=== PATIENT | male | born 1970 | race Caucasian/White ===

== ENCOUNTER 2019-12-27 12:10 | Inpatient (IN) | payer SELFPAY ==
[2019-12-27] VITALS (28 sets, daily range): BP systolic 143–210; BP diastolic 87–130; PULSE 73–122; RESP 14–24; TEMP 36.9; O2SAT 93–100; BMI 26.9
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
--- NOTE | 2019-12-27 12:16 | CT_ITS ---
WS: [id number] CT HEAD TECHNIQUE: Noncontrast CT of the head obtained from the skullbase to the vertex. CLINICAL INFORMATION: ARERAGA/AMS COMPARISON: None. DLP: 903.[address] scans at [facility] use at least one of these dose optimization techniques: automat ed exposure control; mA and/or kV adjustment per patient size (includes targeted exams where dose is matched to clinical indication); or iterative reconstruction. FINDINGS: No evidence of intracranial hemorrhage or mass effect. Ventricular system and basal cisterns are gifford nt. No extra-axial fluid collections. No evidence of mass or mass effect. Normal faust-white different iation. Paranasal sinuses and mastoid air cells are well aerated. .Normal visualized soft tissues. Notified Marina Brian at 12/27/2019 1:[address]/CT head wo con* [id number] IMPRESSION: 1. No evidence of intracranial hemorrhage or mass effect. 2. No acute intracranial findings.
--- NOTE | 2019-12-27 12:23 | ED_ITS ---
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 fatty infiltration the liver. 2. No obstructing renal or ureteral calculi. Normal renal parenchymal enhancement. No hydronephrosis. 3. Slightly heterogeneous and enlarged prostate for patient's age with mild bladder wall thickening. Prostate measures 5.1 x 2.8 CM. Recommend correlation with symptoms of prostatitis. Recommend PSA. 4. Mild bladder wall thickening can be seen with cystitis or bladder outlet obstruction. Dictated By:Jac Velasco MD Signed By:Jac Velasco MDSigned Date/Time:12/27/19 Discharge Plan Discharge Patient Disposition: Admitted As Inpatient Admit Provider: Gagan Davis Clinical Impression: Alcohol withdrawal seizure Condition: Stable Interventions: ED Discharge Assessment Last Done: 12/27/19 19:49 Discharge Date/Time: 12/27/19 19:50 Coding Level of Care Code ED Ocean Lifeguard for Chg Fwd Exam Comprehensive The documentation recorded by the Dyan chavez Valerie R, accurately reflects the service I personally performed and the decisions made by Snehal booker Eli N Dec 27, 2019 12:10
[2019-12-27 12:37] LABS: Basophils # 0.1 10^3/uL (0.0-0.1); Basophils % 0.5 %; Eosinophils % 0.3 %; Hematocrit 50.3 % (42.0-52.0); Hemoglobin 17.1 g/dL (11.7-16.6); Lymphocytes # 1.6 10^3/uL (0.8-4.8); Mean Corpuscular Hemoglobin 33.7 pg (28.0-34.0); Mean Platelet Volume 11.3 fL (7.4-10.4); Monocytes # 0.9 10^3/uL (0.2-0.9); Monocytes % 8.3 %; Neutrophils # 8.1 10^3/uL (1.8-7.7); Neutrophils % 75.4 %; Nucleated Red Blood Cells % 0 %; Platelet Count 146 10^3/cmm (130-400); Red Blood Count 5.08 10^6/uL (4.1-5.3); Red Cell Distribution Width 12.2 % (12.1-15.1); White Blood Count 10.7 10^3/uL (4.0-10.0)
--- NOTE | 2019-12-27 12:39 | PC.NURSE ---
seizure precaution pads placed on pt's bed
[2019-12-27 13:06] LABS: Alanine Aminotransferase 498 U/L (0-41); Albumin Level 4.8 g/dL (3.5-5.2); Alkaline Phosphatase 136 IU/L (40-130); Anion Gap 34.3 (5-19); Blood Urea Nitrogen 9 mg/dL (6-20); Calcium 10.2 mg/dL (8.5-10.5); Carbon Dioxide 14 mmol/L (22-29); Chloride 87 mmol/L (98-107); Globulin 3.8 g/dL (1.3-4.6); Glomerular Filtration Rate 58.7 mL/min (90-130); Glucose 173 mg/dL (65-115); Osmolality Calculated 274 mOsm/kg (285-295); Potassium 3.3 mmol/L (3.5-5.1); Sodium 132 mmol/L (136-145); Total Protein 8.6 g/dL (6.6-8.7)
[2019-12-27 13:07] LABS: Lactic Sepsis W/Reflex 3.4 mmol/L (0.5-2.2)
[2019-12-27 13:10] LABS: Creatine Phosphokinase 330 U/L (39-308)
--- NOTE | 2019-12-27 13:10 | US_ITS ---
WS: [id number] Abdomen ultrasound, 12/27/2019 Clinical Data: Abdominal Pain Comparison: None. Findings: The pancreas shows no cyst, pseudocyst or evidence of pancreatitis. The liver shows no cysts, masses or dilated intrahepatic ducts. Fatty infiltration and enlargement is seen, and the liver measures 22.03 cm The gallbladder has no stones or sludge. The wall measures 0.2 cm with no pericholecystic fluid. The common bile duct is 0.5 cm and no intraductal abnormalities are noted. The right kidney is 5.61 x 6.01 x 10.7 cm. No cysts, masses or hydronephrosis is seen. The left kidney is 6.74 x 6.90 x 11.3 cm. No cysts, masses or hydronephrosis is seen. The abdominal aorta is not dilated and the inferior vena cava has normal flow. No vascular abnormalit ies are seen. The spleen measures 5.02 x 4.47 x 12.0 cm and there are no intrasplenic masses or capsular abnormali ties. US/US abdomen complete* [id number] Impression: Large dense liver
[2019-12-27 13:15] LABS: Aspartate Amino Transferase 827 U/L (0-40)
--- NOTE | 2019-12-27 13:29 | CT_ITS ---
WS: [id number] CT ABDOMEN PELVIS TECHNIQUE: Noncontrast CT of the abdomen and contrast-enhanced CT of the abdomen and pelvis with tomy nal and sagittal reformatted images. CLINICAL INFORMATION: PAIN/BLODDY URINE COMPARISON: None. DLP: 2105.[address] scans at [facility] use at least one of these dose optimization techniques: automat ed exposure control; mA and/or kV adjustment per patient size (includes targeted exams where dose is matched to clinical indication); or iterative reconstruction. FINDINGS: Hepatomegaly with diffuse fatty infiltration of the liver. Normal portal vein and splenic vein. Nighat l gallbladder. Normal spleen. Small splenules. Adrenal glands are normal. Normal renal parenchymal en hancement. No hydronephrosis. No obstructing renal or ureteral calculi. Mild bladder wall thickening can be seen with cystitis or bladder outlet obstruction. Slightly hetero geneous and enlarged prostate for patient's age measuring 5.1 x 2.8 cm. Recommend correlation with pr ostatitis and recommend PSA. Normal pancreas. Normal caliber abdominal aorta. Sigmoid diverticulosis. No evidence of acute diverticulitis. Fat-containing umbilical hernia. No free fluid in the abdomen or pelvis. No periaortic or inguinal lymphadenopathy. Notified Marina Brian at 12/27/2019 3:[address]/CT abdomen pelvis wo/w [id number] IMPRESSION: 1. Thyromegaly diffuse fatty infiltration the liver. 2. No obstructing renal or ureteral calculi. Normal renal parenchymal enhancem ent. No hydronephrosis. 3. Slightly heterogeneous and enlarged prostate for patient's age with mild bl adder wall thickening. Prostate measures 5.1 x 2.8 CM. Recommend correlation wi th symptoms of prostatitis. Recommend PSA. 4. Mild bladder wall thickening can be seen with cystitis or bladder outlet ob struction.
[2019-12-27 13:42] LABS: Hepatitis A Antibody IgM. Non-Reactive (Nonreactive); Hepatitis B Core IgM Non-Reactive (Nonreactive); Hepatitis B Surface Antigen. Non-Reactive (Nonreactive); Hepatitis C Virus Antibody Non-Reactive (Nonreactive)
[2019-12-27] MEDS: sodium chloride 0.9% 2,857.62 ML 2857.6 ML IV (13:42)
--- NOTE | 2019-12-27 13:47 | PC.NURSE ---
portable ultrasound at bedside
[2019-12-27 13:51] LABS: Glucose Urine UA Norm (Normal); Protein Urine 3+ (Negative); Urine Appearance Turbid (CLEAR); Urine Color Red (Yellow); pH Urine 6.5 (5-7)
[2019-12-27 13:52] LABS: Bilirubin Urine 1+ (NEGATIVE); Blood Urine 3+ (Negative); Ketones Urine 1+ (Negative); Leukocyte Esterase Urine Trace (Negative); Nitrate Urine Positive (Negative); RBC Urine >100 /hpf (0-2); Urobilinogen Urine 8 mg/dL (Negative); WBC Urine 25-40 /hpf (0-5)
[2019-12-27 13:53] LABS: Add Urine Culture? Yes; Bacteria Urine 2+; Squamous Epithelial Cell Urine 0-4 (0-5)
[2019-12-27 14:13] LABS: Amphetamines Screen Urine Negative (Negative); Barbiturates Screen Urine Negative (Negative); Benzodiazepines Screen Urine Negative (Negative); Cocaine Screen Urine Negative (Negative); Opiate Screen Urine Negative (Negative); PCP Screen Urine Negative (Negative); THC Screen Urine Positive (Negative)
--- NOTE | 2019-12-27 14:31 | PC.NURSE ---
pt transported to CT by stretcher with tech
[2019-12-27] MEDS: iohexol 300 mg/mL 100 mL Btl IV (14:36)
[2019-12-27 14:37] LABS: Reflex Lactate Order REFLEX LACTIC ORDERD
[2019-12-27 15:02] LABS: Alcohol Level < 10 mg/dL (0-10)
[2019-12-27] MEDS: cefTRIAXone 2,000 MG in sodium chloride 0.9% (plus) 50 ML 100 MG IV (15:07)
[2019-12-27 15:20] LABS: Lactic Acid level (Lactate) 1.4 mmol/L (0.5-2.2)
[2019-12-27] MEDS: LORazepam 2 mg/mL INJ 1 mL 1 MG IVP ×2 (15:57→19:01)
[2019-12-27 16:26] LABS: Ammonia 46 umol/L (16-60)
[2019-12-27 16:27] LABS: Phenytoin Dilantin 0.8 ug/mL (10-20); Valproic Acid Level 2.8 mcg/mL (50-100)
[2019-12-27 16:28] LABS: Lithium 0.1 mmol/L (0.6-1.2)
[2019-12-27 16:29] LABS: Acetaminophen < 5.0 ug/mL (10-30); Salicylate < 0.3 mg/dL (3-10)
[2019-12-27 16:44] LABS: INR 1.21 (0.8-1.2); Partial Thromboplastin Time 20.9 SECONDS (23.9-36.7)
[2019-12-27 17:30] LABS: Lipase 25 U/L (13-60)
[2019-12-27] MEDS: folic acid 1 MG, multivitamin inj 10 ML, thiamine 100 MG in sodium chloride 0.9% 1,000 ML 252.8 MG IV (17:42)
--- NOTE | 2019-12-27 17:44 | PM.HP ---
Providers/Chief Complaint Chief Complaint: NEW ONSET SEIZURES, TEMP History of Present Illness Anam Lozano is a 49 year old male who presents to the hospital with history of generalized shaking, seizure at work associated with loss of consciousness, and slow recovery. Patient reports he does not remember the event. He reports he was feeling normal this morning. He denies any previous history of seizures. He states that he recently stopped drinking and he is an alcoholic. He believes his last alcoholic drink was 2 to 3 days ago. He reports he has had withdrawal in the past. Recently he has been having some health problems with blood in his urine. He denies any dysuria. He has had no fever. He was recently given penicillin for a cut that he obtained on his skin, for UTI. He reports he went to an outside ER and reports they told him penicillin was responsible for his hematuria. He reports no prior history of significant liver failure. He does report he had a little bit of vomiting of blood after a nosebleed on Thursday but has not had any since. He reports 1 blackish stool. This is not continued and he has not had diarrhea. He denies any history of esophageal varices. Review of Systems General: Reports: 10 or more systems reviewed and unremarkable except in HPI and below Const: Reports: fatigue; Denies: fever Eyes: Denies: blurry vision ENMT: Denies: throat pain Card: Denies: chest pain Resp: Denies: shortness of breath GI: Denies: abdominal pain : Reports: other (Blood in urine) Musc: Denies: back pain Skin/Breast: Denies: rash Neuro: Denies: headache Psych: Reports: depression Endo: Denies: excessive urination Usman/Lymph: Denies: easy bruising All/Imm: Denies: hives Medications/Allergies Home Medications Medication Instructions Recorded Confirmed Last Taken Type aspirin 81 mg PO DAILY 12/27/19 12/27/19 Unknown History Allergies Allergy/AdvReac Type Severity Reaction Status Date / Time Penicillins Allergy ADR-Nose Verified 12/27/19 15:11 Bleed PFSH Acute PFSH: Medical History (Updated 12/27/19 @ 18:15 by Gagan Davis MD) Alcoholism Hypertension Surgical History (Updated 12/27/19 @ 17:50 by Gagan Davis MD) History of amputation of finger Family History (Updated 12/27/19 @ 17:50 by Gagan Davis MD) Other Diabetes Social History (Updated 12/27/19 @ 17:51 by Gagan Davis MD) Smoking and tobacco status: current every day smoker Alcohol intake: current Alcohol intake frequency: 3 or more drinks per day Substance/Drug Use: current Substance/Drug use type: Marijuana Vitals/I&O/Wt Last Vital Signs Temp 98.5 F 12/27/19 12:18 Pulse 93 12/27/19 15:27 Resp 16 12/27/19 12:18 BP 166/106 12/27/19 15:27 Pulse Ox 100 12/27/19 15:27 12/27/19 12/27/19 12/27/19 06:59 14:59 22:59 Intake Total 50 / 50 Balance 50 / 50 Weight last 48 hrs Weight 95.254 kg Physical Exam Narrative: EXAM NARRATIVE: General exam demonstrates a white male, alert and oriented, and normal baseline mental status. From my understanding he was initially confused upon arriving to the emergency department. HEENT: Pupils equally round. Oropharynx is clear. Neck is supple no lymphadenopathy or thyromegaly Cardiovascular regular rate and rhythm without murmur, no S3 or S4. Heart rate borderline tachycardic Abdomen is soft nontender with positive bowel sounds. Hepatomegaly is noted was deferred Extremities no cyanosis clubbing or edema, cap refill brisk Skin no rash Neuro no focal deficits Data : 12/27/19 11:25 12/27/19 11:25 Micro: Microbiology 12/27/19 12:38 Blood Culture - Preliminary Blood SPECIMEN COLLECTED 12/27/19 12:47 Blood Culture - Preliminary Blood SPECIMEN COLLECTED Other data: INR is 1.2. Total bili 2.0, AST 827, ALT 498, alk phos 136, CK 330, ammonia normal, lipase normal, urinalysis demonstrates greater than 100 reds, 25-40 whites, positive nitrate hepatitis panel is negative. Urine drug screen positive for THC A&P Assessment and plan (1) Seizure: Secondary to alcohol withdrawal. CIWA protocol. Initial CT negative Monitor for any recurrent seizures. Currently we will hold off on any seizure medication, other than treating for alcohol withdrawal Status: Acute Code(s): R56.9 - Unspecified convulsions (2) Alcohol withdrawal: Initiate CIWA protocol Hydration Encourage no further alcohol Will provide information regarding rehabilitation services Status: Acute Code(s): F10.239 - Alcohol dependence with withdrawal, unspecified (3) Alcoholic hepatitis: Close follow-up of hepatic function Discussed with patient and mother if worsens may need transfer. Risks and benefits of not being admitted at a tertiary care center were discussed including decompensation, and/or disability Status: Acute Code(s): K70.10 - Alcoholic hepatitis without ascites (4) Hematuria: Most likely secondary to UTI. We will keep glomerulonephritis in mind. Will check ASO secondary to recent history of skin infection, penicillin use. Check urine eosinophils as well. Status: Acute Code(s): R31.9 - Hematuria, unspecified (5) Hypokalemia: Supplement Status: Acute Code(s): E87.6 - Hypokalemia (6) Metabolic acidosis: Likely secondary to seizure, repeat laboratory in the morning Status: Acute Code(s): E87.2 - Acidosis (7) Tobacco dependency: Encouraged abstinence Status: Acute Code(s): F17.200 - Nicotine dependence, unspecified, uncomplicated Additional A&P Information We will initially place in the ICU secondary to alcohol withdrawal causing seizure, markedly elevated blood pressure, transaminitis Attestations Medical Necessity Statement*: Will need greater than 2 midnight stay secondary to alcohol withdrawal, seizure Time Spent in Patient Care: Greater than 35 minutes Coding Level of Care Code Acute 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
[2019-12-27] MEDS: sodium chloride 0.9% 1,000 ML 125 ML IV (20:14)
[2019-12-27] MEDS: pantoprazole 40 mg SDV IVP (20:15)
[2019-12-27] MEDS: hyDRALAzine 20 mg/mL INJ 1 mL 10 MG IVP (20:15)
[2019-12-27 21:27] LABS: C Reactive Protein 3.1 mg/L (0.0-4.9)
[2019-12-27 22:10] LABS: Erythrocyte Sedimentation Rate 14 mm/hr (0-10)
[2019-12-28] VITALS (21 sets, daily range): BP systolic 139–178; BP diastolic 90–116; PULSE 72–104; RESP 11–23; TEMP 36.8–37.2; O2SAT 90–99
[2019-12-28 01:07] LABS: Eosinophil Urine No Eosinophils Seen
[2019-12-28 01:08] LABS: Urine Eosinophil Count 0 (0-0)
[2019-12-28] MEDS: sodium chloride 0.9% 1,000 ML 125 ML IV ×2 (03:50→12:31)
[2019-12-28 04:40] LABS: Basophils % 0.3 %; Eosinophils # 0.1 10^3/uL (0.0-0.8); Eosinophils % 0.8 %; Hematocrit 42.8 % (42.0-52.0); Hemoglobin 14.4 g/dL (11.7-16.6); Lymphocytes # 0.9 10^3/uL (0.8-4.8); Lymphocytes % 15.3 %; Mean Corpuscular HGB Conc 33.6 g/dL (30.0-36.0); Mean Corpuscular Hemoglobin 32.8 pg (28.0-34.0); Mean Corpuscular Volume 97.5 fL (80-94); Mean Platelet Volume 10.5 fL (7.4-10.4); Monocytes # 0.5 10^3/uL (0.2-0.9); Monocytes % 8.8 %; Neutrophils # 4.5 10^3/uL (1.8-7.7); Neutrophils % 74.6 %; Nucleated Red Blood Cells % 0 %; Platelet Count 98 10^3/cmm (130-400); Red Blood Count 4.39 10^6/uL (4.1-5.3); Red Cell Distribution Width 11.9 % (12.1-15.1)
[2019-12-28 05:08] LABS: Alanine Aminotransferase 430 U/L (0-41); Albumin Level 3.6 g/dL (3.5-5.2); Alkaline Phosphatase 110 IU/L (40-130); Anion Gap 14.4 (5-19); Blood Urea Nitrogen 6 mg/dL (6-20); Calcium 8.8 mg/dL (8.5-10.5); Carbon Dioxide 24 mmol/L (22-29); Chloride 102 mmol/L (98-107); Globulin 2.5 g/dL (1.3-4.6); Glomerular Filtration Rate 102.7 mL/min (90-130); Glucose 103 mg/dL (65-115); Osmolality Calculated 280 mOsm/kg (285-295); Potassium 3.4 mmol/L (3.5-5.1); Sodium 137 mmol/L (136-145); Total Protein 6.1 g/dL (6.6-8.7)
[2019-12-28 05:17] LABS: Aspartate Amino Transferase 697 U/L (0-40)
[2019-12-28] MEDS: metoprolol tartrate 25 mg Tablet PO ×2 (10:29→17:21)
[2019-12-28] MEDS: thiamine 100 mg Tablet PO (10:29)
[2019-12-28] MEDS: multivitamin therapeutic Tablet 1 TAB PO (10:30)
[2019-12-28] MEDS: folic acid 1 mg Tablet PO (10:30)
[2019-12-28] MEDS: pantoprazole 40 mg SDV IVP ×2 (10:34→10:41)
[2019-12-28] MEDS: hyDRALAzine 20 mg/mL INJ 1 mL 10 MG IVP (10:42)
--- NOTE | 2019-12-28 10:51 | PM.PN ---
Subjective Subjective: Interval history: Anam reports he is feeling okay, but tired. He has had no further seizures. He continues to urinate blood. Medications: Reviewed: Yes Vitals/I&O/Wt Last Vital Signs Temp 98.5 F 12/27/19 12:18 Pulse 79 12/28/19 04:00 Resp 16 12/28/19 04:00 BP 154/91 12/28/19 04:00 Pulse Ox 96 12/28/19 04:00 12/27/19 12/28/19 12/28/19 22:59 06:59 14:59 Intake Total 50 / 50 1000 / 1050 Output Total 700 / 700 1100 / 1800 Balance -650 / -650 -100 / -750 Weight last 48 hrs Weight 95.254 kg Physical Exam Narrative: EXAM NARRATIVE: General exam no apparent distress Cardiovascular regular rate and rhythm without murmur Lungs clear Abdomen is soft with positive bowel sounds Extremities no cyanosis clubbing or edema Data : 12/28/19 04:23 12/28/19 04:23 Micro: Microbiology 12/27/19 13:02 Urine Culture - Preliminary Urine,Clean Catch 12/27/19 12:38 Blood Culture - Preliminary Blood SPECIMEN COLLECTED 12/27/19 12:47 Blood Culture - Preliminary Blood SPECIMEN COLLECTED A&P Assessment and plan (1) Seizure: Secondary to alcohol withdrawal. CIWA protocol. Initial CT negative No current evidence of any recurrent seizures Continue supportive care Status: Acute Code(s): R56.9 - Unspecified convulsions (2) Alcohol withdrawal: Continue CIWA protocol Reduce IV fluids Encourage no further alcohol Will provide information regarding rehabilitation services Continue thiamine, folate Status: Acute Code(s): F10.239 - Alcohol dependence with withdrawal, unspecified (3) Alcoholic hepatitis: Hepatic function slightly improved Status: Acute Code(s): K70.10 - Alcoholic hepatitis without ascites (4) Hematuria: Most likely secondary to UTI. We will keep glomerulonephritis in mind. ASO is pending. CRP and sedimentation rate not significantly elevated. Albumin level was normal. Urine eosinophils negative Consult urology Continue ceftriaxone Status: Acute Code(s): R31.9 - Hematuria, unspecified (5) Hypokalemia: Supplement Status: Acute Code(s): E87.6 - Hypokalemia (6) Metabolic acidosis: Likely secondary to seizure, resolved Status: Acute Code(s): E87.2 - Acidosis (7) Tobacco dependency: Encouraged abstinence Status: Acute Code(s): F17.200 - Nicotine dependence, unspecified, uncomplicated Additional A&P Information Hypertension. Initiate metoprolol. History of an episode of epistaxis or hematemesis. Continue Protonix Thrombocytopenia, likely secondary to bone marrow suppression or cirrhosis from alcohol Transfer out of ICU Attestations Medical Necessity Statement*: Needs continued hospital stay for close monitoring secondary to alcoholic hepatitis, evaluation of hematuria Coding Level of Care Code Acute Web Services Manager for g Fwd Diagnoses Seizure R56.9 Alcohol withdrawal F10.239 Alcoholic hepatitis K70.10 Hematuria R31.9 Hypokalemia E87.6 Metabolic acidosis E87.2 Tobacco dependency F17.200
[2019-12-28] MEDS: cloNIDine 0.1 mg Tablet PO (12:18)
[2019-12-28] MEDS: amlodipine 10 mg Tablet PO (13:16)
--- NOTE | 2019-12-28 13:18 | PC.NURSE ---
transferring to med surge per w/c
[2019-12-28] MEDS: cefTRIAXone 2,000 MG in sodium chloride 0.9% (plus) 50 ML 100 MG IV (16:38)
[2019-12-28] MEDS: pantoprazole DR 40 mg Tablet PO (17:22)
[2019-12-28] MEDS: oxyCODONE 5 mg IR Tab/Cap PO (17:30)
--- NOTE | 2019-12-28 18:38 | P.CONIM_ITS ---
Providers/Reason For Consult Consulting Physican/Specialty*: Urology/[place] Reason for Consult*: Gross hematuria Attending Physician: Gagan Davis MD History of Present Illness History of Present Illness Anam Lozano is a 49 year old male who I evaluated for the first time today at the request of Dr. Gagan Davis for gross hematuria. States that he noticed for the first time in his life some gross hematuria beginning about 5 days ago. Described as total. No clots. Otherwise was asymptomatic. Denied dysuria flank pain renal colic stone passage etc. No history of prior episodes and no history of recurrent UTIs. He denies any other count of bleeding dyscrasia symptoms. Overall the degree of total hematuria has decreased somewhat over the last day or 2. Tonight his urine is more alethea than bloody. He was admitted to the hospital for seizure activity and DTs apparently. Work-up to date has shown a normal CT scan with no evidence of stones obstruction infectious changes masses etc. Normal coagulation studies. Preliminary urine culture is negative. I reviewed with him the standard work-up for gross hematuria including CT scan, cystoscopy, physical exam, cytology and culture. Physical exam today is normal. (See below) We will send cytology and perform flexible bedside cystoscopy before discharge. Review of Systems Const: Denies: fever or chills Eyes: Denies: change in vision or blurry vision ENMT: Reports: other (Tongue is sore from seizure activity where he bit down.); Denies: painful swallowing Card: Denies: chest pain or palpitations Resp: Denies: shortness of breath or productive cough GI: Denies: abdominal pain, nausea, vomiting, bloating or change in bowel habits : Reports: blood in urine (See HPI); Denies: flank pain, difficulty urinating, painful urination, genital pain or testicular pain Musc: Denies: extremity pain, joint swelling or deformity Skin/Breast: Denies: rash or redness Neuro: Reports: seizure-like activity (See H&P) Psych: Reports: depression; Denies: mood swings Endo: Denies: excessive urination or hot flashes Usman/Lymph: Denies: easy bruising or easy bleeding All/Imm: Denies: hives or itchy eyes Meds/Allergies Home Medications and Allergies Home Medications Medication Instructions Recorded Confirmed Type aspirin 81 mg PO DAILY 12/27/19 12/27/19 History Allergies Allergy/AdvReac Type Severity Reaction Status Date / Time Penicillins Allergy ADR-Nose Verified 12/27/19 15:11 Bleed Current Medications Current Medications Generic Name Dose Route Start Last Admin Trade Name Freq PRN Reason Stop Dose Admin Folic Acid 1 mg 12/28/19 09:00 12/28/19 10:30 Folic Acid PO 1 mg DAILY BALJEET Administration Hydralazine HCl 10 mg 12/27/19 19:50 12/28/19 10:42 Apresoline IVP 10 mg Q4H PRN Administration HYPERTENSION Sodium Chloride 1,000 mls @ 75 mls/hr 12/27/19 19:50 12/28/19 12:31 Sodium Chloride 0.9% IV 125 mls/hr .[id number] BALJEET Administration Ceftriaxone Sodium 2,000 mg/ 50 mls @ 100 mls/hr 12/28/19 16:00 12/28/19 17:25 Sodium Chloride IV Infused Q24H BALJEET Infusion Protocol Metoprolol Tartrate 25 mg 12/28/19 09:00 12/28/19 17:21 Lopressor PO 25 mg BID BALJEET Administration Multivitamins Therapeutic 1 tab 12/28/19 09:00 12/28/19 10:30 Multivitamin Tab PO 1 tab DAILY BALJEET Administration Oxycodone HCl 5 mg 12/28/19 17:30 12/28/19 17:30 Oxycodone Ir PO 5 mg Q6H PRN Administration MODERATE PAIN Pantoprazole Sodium 40 mg 12/28/19 18:00 12/28/19 17:22 Protonix PO 40 mg BID BALJEET Administration Thiamine Mononitrate 100 mg 12/28/19 09:00 12/28/19 10:29 Vitamin B-1 PO 100 mg DAILY BALJEET Administration PFSH Acute PFSH: Medical History (Updated 12/28/19 @ 18:43 by Rolo Ashton MD) Alcoholism Hematuria Hypertension Surgical History History of amputation of finger Family History Other Diabetes Social History Smoking and tobacco status: current every day smoker Alcohol intake: current Alcohol intake frequency: 3 or more drinks per day Vitals/I&O/Wt Last Vital Signs Temp 98.8 F 12/28/19 16:00 Pulse 82 12/28/19 16:00 Resp 18 12/28/19 17:30 BP 147/99 12/28/19 16:00 Pulse Ox 98 12/28/19 17:30 12/28/19 12/28/19 12/28/19 06:59 14:59 22:59 Intake Total 1000 / 1050 1720 / 1720 170 / 1890 Output Total 1100 / 1800 750 / 750 225 / 975 Balance -100 / -750 970 / 970 -55 / 915 Weight last 48 hrs Weight 210 lb Physical Exam Const: COMMON NORMALS: no apparent distress, alert and well nourished GENERAL APPEARANCE: well kempt and well developed ORIENTATION/CONSCIOUSNESS: not confused HENMT: COMMON NORMALS: normocephalic and head/scalp atraumatic HEAD & SCALP: normocephalic and atraumatic Eye: COMMON NORMALS: conjunctivae normal and no scleral icterus CONJUNCTIVA: Yes conjunctivae normal Neck/C-Spine: COMMON NORMALS: full ROM GENERAL: Yes normal visual inspection Resp: COMMON NORMALS: normal respiratory effort EFFORT & INSPECTION: No labored and No actively coughing Cardio: COMMON NORMALS: regular rate and regular rhythm RATE: regular rate RHYTHM: regular rhythm PERIPHERAL PULSES: other (No edema) GI: COMMON NORMALS: soft to palpation and non-tender PALPATION: Yes soft and No tender RECTAL EXAM: Yes visual inspection normal, Yes normal sphincter tone, Yes prostate normal, No prostate abnormal and No mass : MALE GROIN/PERINEUM EXAM: No ecchymosis and No hernia (No inguinal bulge) PENIS: normal penis and circumcised MEATUS: meatus normal, no meatla discharge and No blood at meatus SCROTUM: Yes testes descended bilaterally, No edematous and No scrotal swelling TESTES: No absent testicle, No testicular tenderness, No testicular mass, Yes epididymides normal and No epididymal tenderness Extremity: COMMON NORMALS: no clubbing, cyanosis or edema Neuro: COMMON NORMALS: no focal motor deficits SENSORIUM/ORIENTATION: Yes alert Psych: COMMON NORMALS: mental status grossly normal APPEARANCE: Yes grossly normal and Yes well kempt ATTITUDE: Yes calm and Yes engaged Skin: COMMON NORMALS: no rashes or lesions noted and no jaundice GENERAL SKIN EXAM: no rashes or lesions noted Data Micro: Micro: Microbiology 12/27/19 12:38 Blood Culture - Pr eliminary Blood NEGATIVE TO FRANCO E 12/27/19 12:47 Blood Culture - Pr eliminary Blood NEGATIVE TO FRANCO E 12/27/19 13:02 Urine Culture - Pr eliminary Urine,Clean Catch Other Data: Other data: CT scan A&P Assessment and plan (1) Gross hematuria: Acute onset of gross hematuria of unclear etiology with no renal colic, UTI type symptoms, baseline voiding dysfunction or prior similar episodes. Seems to be improving spontaneously without specific treatment. Work-up to date has included a normal CT scan, physical exam, urine culture. Recommend FLEXIBLE CYSTOSCOPY at bedside and urine cytology (ordered). Status: Acute Code(s): R31.0 - Gross hematuria Consult Attestations 2 Medical Necessity Statement: See attending Coding Level of Care Code Acute Hand Buffing Wheel Former for Christina Arriola Diagnoses Gross hematuria R31.0
[2019-12-29] VITALS (7 sets, daily range): BP systolic 146–164; BP diastolic 91–97; PULSE 69–81; RESP 18–24; TEMP 36.8–37.2; O2SAT 95–99
[2019-12-29] MEDS: sodium chloride 0.9% 1,000 ML 75 ML IV (01:26)
[2019-12-29 05:37] LABS: Basophils % 0.5 %; Eosinophils # 0.1 10^3/uL (0.0-0.8); Hematocrit 44.9 % (42.0-52.0); Hemoglobin 15.1 g/dL (11.7-16.6); Lymphocytes # 1.1 10^3/uL (0.8-4.8); Lymphocytes % 18.5 %; Mean Corpuscular HGB Conc 33.6 g/dL (30.0-36.0); Mean Corpuscular Hemoglobin 32.5 pg (28.0-34.0); Mean Corpuscular Volume 96.8 fL (80-94); Mean Platelet Volume 11.5 fL (7.4-10.4); Monocytes # 0.6 10^3/uL (0.2-0.9); Monocytes % 10.7 %; Neutrophils % 68.8 %; Nucleated Red Blood Cells % 0 %; Platelet Count 106 10^3/cmm (130-400); Red Blood Count 4.64 10^6/uL (4.1-5.3); Red Cell Distribution Width 11.9 % (12.1-15.1); White Blood Count 5.8 10^3/uL (4.0-10.0)
[2019-12-29 06:00] LABS: Alanine Aminotransferase 558 U/L (0-41); Albumin Level 3.9 g/dL (3.5-5.2); Alkaline Phosphatase 131 IU/L (40-130); Anion Gap 18.4 (5-19); Blood Urea Nitrogen 8 mg/dL (6-20); Calcium 9.1 mg/dL (8.5-10.5); Carbon Dioxide 23 mmol/L (22-29); Chloride 99 mmol/L (98-107); Globulin 2.6 g/dL (1.3-4.6); Glomerular Filtration Rate 89.7 mL/min (90-130); Glucose 90 mg/dL (65-115); Osmolality Calculated 279 mOsm/kg (285-295); Potassium 3.4 mmol/L (3.5-5.1); Sodium 137 mmol/L (136-145); Total Bilirubin 1.3 mg/dL (0.15-1.2); Total Protein 6.5 g/dL (6.6-8.7)
[2019-12-29 06:38] LABS: Aspartate Amino Transferase 761 U/L (0-40)
--- NOTE | 2019-12-29 08:02 | PM.PN ---
Subjective Subjective: Interval history: Urine is clearing. No gross blood this morning. Denies dysuria, frequency urgency or other discomfort at this time. Denies recurrent seizures, chest pain, shortness of breath abnormal bleeding etc. No respiratory distress. No mental status changes. He is desirous of discharge as soon as possible. Reviewed flexible cystoscopy as a reasonable evaluation of gross hematuria along with completion of the evaluation via urine cytology. See yesterday's note. Explained the procedure to the patient. He agreed. PROCEDURE: FLEXIBLE CYSTOSCOPY Prepped and draped in the usual sterile fashion in supine position. Well-lubricated flexible cystoscope was passed into the urethral meatus into the bladder under direct vision. Urethra was normal. The prostate appeared somewhat friable but no neoplastic process identified. There were no abnormal bladder lesions. He did have some bladder spasms with loss of volume. Withdrawal the scope under direct vision revealed same findings. Recommendations: From a urologic perspective the only thing pending for work-up of gross hematuria is his urinary cytology. If not already that will be sent. I encouraged him to call me back in 2 weeks roughly to check the results of that if it is negative and his urine has remained clear and stays that way he will not require additional follow-up. All the above was explained in detail to the patient. Vitals/I&O/Wt Last Vital Signs Temp 98.4 F 12/29/19 07:27 Pulse 74 12/29/19 07:27 Resp 18 12/29/19 07:27 BP 157/93 12/29/19 07:27 Pulse Ox 98 12/29/19 07:27 12/28/19 12/29/19 12/29/19 22:59 06:59 14:59 Intake Total 410 / 2263.333 986.667 / 3250.000 Output Total 225 / 975 Balance 185 / 1288.333 986.667 / 2275.000 Weight last 48 hrs Weight 210 lb Physical Exam Const: COMMON NORMALS: no apparent distress and alert GENERAL APPEARANCE: well kempt and well developed ORIENTATION/CONSCIOUSNESS: not confused Resp: COMMON NORMALS: normal respiratory effort EFFORT & INSPECTION: No labored and No actively coughing : BLADDER/KIDNEY EXAM: Yes bladder normal to palpation PENIS: normal penis MEATUS: meatus normal SCROTUM: Yes testes descended bilaterally and No tenderness TESTES: No testicular mass Neuro: SENSORIUM/ORIENTATION: Yes alert Psych: COMMON NORMALS: mental status grossly normal, thought process normal and cooperative APPEARANCE: Yes grossly normal and Yes well kempt ATTITUDE: Yes calm and Yes engaged THOUGHT PROCESS: normal thought process Data : 12/29/19 04:47 12/29/19 04:47 Micro: Microbiology 12/27/19 12:38 Blood Culture - Preliminary Blood NEGATIVE TO DATE 12/27/19 12:47 Blood Culture - Preliminary Blood NEGATIVE TO DATE 12/27/19 13:02 Urine Culture - Preliminary Urine,Clean Catch A&P Assessment and plan (1) Gross hematuria: Flexible cystoscopy was normal today. Summary of work-up to date: Normal CT scan, physical exam, flexible cystoscopy, urine culture. URINARY CYTOLOGY pending and can be reviewed over the phone on outpatient basis. Can be discharged when appropriate from hospitalist perspective. Status: Acute Code(s): R31.0 - Gross hematuria Attestations Medical Necessity Statement*: See attending Coding Level of Care Code Acute Hogs[place] Hooper for [facility] Diagnoses Gross hematuria R31.0
[2019-12-29] MEDS: thiamine 100 mg Tablet PO (08:54)
[2019-12-29] MEDS: amlodipine 10 mg Tablet PO (08:54)
[2019-12-29] MEDS: metoprolol tartrate 25 mg Tablet PO (08:54)
[2019-12-29] MEDS: multivitamin therapeutic Tablet 1 TAB PO (08:54)
[2019-12-29] MEDS: folic acid 1 mg Tablet PO (08:54)
[2019-12-29] MEDS: pantoprazole DR 40 mg Tablet PO (08:54)
--- NOTE | 2019-12-29 09:20 | PM.DCS ---
Discharge Providers Date of Admission: 12/27/19 17:44 Date of Discharge: December 29, 2019 Attending Provider at Admission: Gagan Davis MD Attending Provider at Discharge: Gagan Davis MD Diagnoses at Discharge Discharge Diagnosis (1) Gross hematuria: Status: Acute Problem details: Resolved. Finish course of cefuroxime. Cystoscopy was negative. Reason for Visit Reason for Visit: Reason For Visit: NEW ONSET SEIZURES, TEMP Hospital Course Hospital Course: Anam presented to the hospital with alcohol withdrawal, with a likely seizure. Liver function tests were elevated. He was having hematuria. INR was slightly elevated. While in the hospital he was hydrated, treated for alcohol withdrawal, and placed on antibiotics for possible UTI. He improved well in the hospital, and alcohol withdrawal ceased. Urology visited with him and did a cystoscopy which was normal. By the time of discharge she was alert, oriented, and ready to go home. He will finish up a short course of Ceftin. While in the hospital his liver function tests improved the second day, and then enzymes were slightly higher the next day although overall bilirubin level decreased. With him feeling better, with decreased bilirubin level, and no other symptoms he was discharged home. His hepatitis screening was negative for A, B, and C. He will follow-up with a primary care provider in 3 to 5 days for repeat liver function tests. He was counseled on alcohol and tobacco abstinence and given information regarding alcoholism and outpatient follow-up. While in the hospital blood pressure was noted to be elevated. He reported a past history of hypertension. Medication was added for this, which will likely need to be adjusted further as an outpatient. Physical Exam Narrative: EXAM NARRATIVE: General exam is no apparent distress Cardiovascular regular rate and rhythm without murmur Lungs clear Abdomen is soft positive bowel sounds Extremities no cyanosis clubbing or edema Discharge Data Data Completed and Pending: Completed Studies During Hospitalization Category Date Time Status CT abdomen pelvis wo/w 22398 Urgent Cat Scan 12/27/19 13:[address] head wo con* 7 0450 Urgent Cat Scan 12/27/19 12:16 Completed XR chest 1V benny ble [id number] Stat Exams 12/27/19 12:16 Completed US abdomen comple te* [id number] Urgent Ultrasound 12/27/19 13:10 Completed Pending at discharge Category Date Time Status Anti-streptolysin O Routine Lab 12/27/19 11:25 Received Blood Culture Sta t Lab 12/27/19 12:38 Results Urine Culture Sta t Lab 12/27/19 13:02 Results Cytology [PTH] Ro utine Pth 12/29/19 08:01 Ordered Labs from last 24 hours 12/29/19 12/29/19 04:47 04:47 WBC 5.8 RBC 4.64 Hgb 15.1 Hct 44.9 MCV 96.8 H MCH 32.5 MCHC 33.6 RDW 11.9 L Plt Count 106 L MPV 11.5 H Neut % (Auto) 68.8 Lymph % (Auto) 18.5 [place] % (Auto) 10.7 Eos % (Auto) 1.0 Baso % (Auto) 0.5 Neut # (Auto) 4.0 Lymph # (Auto) 1.1 [place] # (Auto) 0.6 Eos # (Auto) 0.1 Baso # (Auto) 0.0 Nucleated RBC % (a uto) 0 Nucleated RBCs # 0.0 Sodium 137 Potassium 3.4 L Chloride 99 Carbon Dioxide 23 Anion Gap 18.4 BUN 8 Creatinine 0.9 GFR Calculation 89.7 L Glucose 90 Calculated Osmolal ity 279 L Calcium 9.1 Total Bilirubin 1.3 H AST 761 H ALT 558 H Alkaline Phosphata se 131 H Total Protein 6.5 L Albumin 3.9 Globulin 2.6 Vitals: Last Vital Signs Temp 98.4 F 12/29/19 07:27 Pulse 74 12/29/19 07:27 Resp 18 12/29/19 07:27 BP 157/93 12/29/19 07:27 Pulse Ox 98 12/29/19 07:27 Discharge Plan Discharge Patient Disposition: Home, Self-Care Condition: Stable Prescriptions: New thiamine mononitrate (vit B1) [Vitamin B-1 (mononitrate)] 100 mg Tablet 100 mg PO DAILY Qty: 30 RF: 0 amlodipine 10 mg Tablet 10 mg PO DAILY Qty: 30 RF: 0 folic acid 1 mg Tablet 1 mg PO DAILY Qty: 30 RF: 0 Thera 400 mcg Tablet 1 tab PO DAILY Qty: 30 RF: 0 metoprolol tartrate 25 mg Tablet 25 mg PO BID Qty: 60 RF: 0 pantoprazole 40 mg Tablet,Delayed Release (Dr/Ec) 40 mg PO BID Qty: 60 RF: 0 cefuroxime axetil 500 mg tablet 500 mg PO BID 7 Days Qty: 14 RF: 0 Discontinued aspirin 81 mg Tablet,Chewable 81 mg PO DAILY RF: 0 Discharge Diet: Cardiac Discharge Activity: Resume usual activity Activity Restrictions/Additional Instructions: Avoid all alcohol Use resources for alcoholism given by discharge planning No aspirin, anti-inflammatories Follow-up with primary care provider 3 to 5 days with visit, and repeat liver function tests at that time. Stop smoking Discharge Attestations Time Spent in Discharge Care*: greater than 30 min Quality Metrics Clinical Quality Measures During this hospital stay, did patient experience: None Coding Level of Care Code Acute Office [employer] for [employer] Diagnoses Gross hematuria R31.0
[2019-12-29 09:46] LABS: Anti-streptolysin O 79 IU/mL (<200)
--- NOTE | 2019-12-29 14:54 | PC.NURSE ---
Discharge Note This nurse went over all discharge information. Patient was educated on medications; adverse effect/side effects and administration. Patient was informed of appointments made for him. Patient acknowledged he understood. IV was removed with catheter in tact. Patient tolerated well with a pressure bandage placed. Patient was taken down by wheelchair to be picked up.
== END 2019-12-29 14:45 | disposition home or self-care (01) | DRG 101 ==
LOC: ER 16:13 → ICU 18:21 → MEDSURG 12-28 13:35
PROVIDERS: Admitting Provider Internal Medicine; Emergency Provider Emergency Medicine; Visit Provider Internal Medicine
DX: R56.9 Unspecified convulsions (principal); F10.239 Alcohol dependence with withdrawal, unspecified; E87.2 Acidosis; N39.0 Urinary tract infection, site not specified; R31.0 Gross hematuria; F17.210 Nicotine dependence, cigarettes, uncomplicated; K70.10 Alcoholic hepatitis without ascites; E87.6 Hypokalemia; I10 Essential (primary) hypertension; D69.6 Thrombocytopenia, unspecified; N32.89 Other specified disorders of bladder; Z79.82 Long term (current) use of aspirin
CPT/HCPCS: 12345; 36415; 70450; 71045; 74178; 76700; 80053; 80074; 80156; 80164; 80178; 80185; 80306; 80307; 81001; 82140; 82550; 83605; 83690; 83735; 85025; 85610; 85651; 85730; 85999; 86060; 86140; 87040; 87086; 96375; 99284; C9113; J0360; J0696; J2060; J3411; J3490; J7030; Q9967